=== PATIENT | female | born 1940 | race Caucasian/White ===

== ENCOUNTER 2018-07-15 07:58 | Emergency (ER) | payer MEDICARE ==
[~2018-07-15] VITALS: Ht 149.9 cm; Wt 95.3 kg
--- OUTSIDE RECORDS SUMMARY | ~2018-07-15 | XMS | Clinical Summary ---
Demographics + + + | Address | [address] | | | [place] [address] | + + + | Home Phone | | + + + | Preferred Language | Unknown | + + + | Marital Status | | + + + | Voodoo Affiliation | Unknown | + + + | Race | Unknown | + + + | Ethnic Group | Unknown | + + + Author + + + | Author | [facility] | + + + | Organization | [facility] | + + + | Address | Unknown | + + + | Phone | Unavailable | + + + Support + + +---------+ + | Name | Relationship | Address | Phone | + + +---------+ + | Myrna Chirinos | ECON | Unknown | | + + +---------+ + Care Team Providers + +------+ + | Care Second Steward Name | Role | Phone | + +------+ + | Brian Zapata MD | PP | | + +------+ + Allergies No Known Allergies Current Medications + + +-------+---------+------+------+-------+ | Prescription | Sig. | Disp. | Refills | Star | End | Statu | | | | | | t | Date | s | | | | | | Date | | | + + +-------+---------+------+------+-------+ | Aloe Vera 500 MG | Take 1,200 mg by | | | | | Activ | | CAPS | mouth daily. | | | | | e | + + +-------+---------+------+------+-------+ | aspirin 81 MG | Take 81 mg by mouth | | | | | Activ | | chewable tablet | daily. | | | | | e | + + +-------+---------+------+------+-------+ | atorvastatin | Take 20 mg by mouth | | | | | Activ | | (LIPITOR) 20 MG | nightly. | | | | | e | | tablet | | | | | | | + + +-------+---------+------+------+-------+ | Difluprednate 0.05 | Apply 1 drop to eye | | | | | Activ | | % EMUL | 2 (two) times daily. | | | | | e | + + +-------+---------+------+------+-------+ | doxazosin | Take 8 mg by mouth | | | | | Activ | | (CARDURA) 8 MG | nightly. | | | | | e | | tablet | | | | | | | + + +-------+---------+------+------+-------+ | ferrous sulfate, | Take 65 mg of iron | | | | | Activ | | 65 FE, 324 (65 FE) | by mouth 3 (three) | | | | | e | | MG EC tablet | times daily with | | | | | | | | meals. | | | | | | + + +-------+---------+------+------+-------+ | folic acid | Take 1 mg by mouth | | | | | Activ | | (FOLVITE) 1 MG | daily. | | | | | e | | tablet | | | | | | | + + +-------+---------+------+------+-------+ | furosemide (LASIX) | Take 40 mg by mouth | | | | | Activ | | 40 MG tablet | daily. | | | | | e | + + +-------+---------+------+------+-------+ | Alcaftadine | Apply 1 drop to eye | | | | | Activ | | (LASTACAFT) 0.25 % | daily. | | | | | e | | SOLN | | | | | | | + + +-------+---------+------+------+-------+ | levothyroxine | Take 75 mcg by mouth | | | | | Activ | | (SYNTHROID, | daily. | | | | | e | | LEVOTHROID) 75 MCG | | | | | | | | tablet | | | | | | | + + +-------+---------+------+------+-------+ | losartan (COZAAR) | Take 100 mg by mouth | | | | | Activ | | 100 MG tablet | daily. | | | | | e | + + +-------+---------+------+------+-------+ | metFORMIN | Take 500 mg by mouth | | | | | Activ | | (GLUCOPHAGE) 500 MG | 2 (two) times daily | | | | | e | | tablet | with meals. | | | | | | + + +-------+---------+------+------+-------+ | Moxifloxacin HCl | Apply 1 drop to eye | | | | | Activ | | (MOXEZA) 0.5 % SOLN | 2 (two) times daily. | | | | | e | + + +-------+---------+------+------+-------+ | nateglinide | Take 120 mg by mouth | | | | | Activ | | (STARLIX) 120 MG | 3 (three) times | | | | | e | | tablet | daily before meals. | | | | | | + + +-------+---------+------+------+-------+ | fish oil-omega-3 | Take 2 g by mouth 3 | | | | | Activ | | fatty acids 1000 MG | (three) times daily. | | | | | e | | capsule | | | | | | | + + +-------+---------+------+------+-------+ | pantoprazole | Take 40 mg by mouth | | | | | Activ | | (PROTONIX) 40 MG | daily. | | | | | e | | tablet | | | | | | | + + +-------+---------+------+------+-------+ | potassium chloride | Take 10 mEq by mouth | | | | | Activ | | (K-DUR) 10 MEQ | 2 (two) times | | | | | e | | tablet | daily. | | | | | | + + +-------+---------+------+------+-------+ | spironolactone | Take 50 mg by mouth | | | | | Activ | | (ALDACTONE) 50 MG | daily. | | | | | e | | tablet | | | | | | | + + +-------+---------+------+------+-------+ | albuterol | Take 2.5 mg by | | | | | Activ | | (PROVENTIL) (5 | nebulization every 4 | | | | | e | | MG/ML) 0.5% | (four) hours as | | | | | | | nebulizer solution | needed. | | | | | | + + +-------+---------+------+------+-------+ | ascorbic acid | Take 500 mg by mouth | | | | | Activ | | (VITAMIN C) 250 MG | daily. | | | | | e | | CHEW | | | | | | | + + +-------+---------+------+------+-------+ | | 1 drop nightly. | | | | | Activ | | carboxymethylcellulo | | | | | | e | | se (REFRESH PLUS) | | | | | | | | 0.5 % SOLN | | | | | | | + + +-------+---------+------+------+-------+ | traMADol (ULTRAM) | Take 50 mg by mouth | | | | | Activ | | 50 MG tablet | every 6 (six) hours | | | | | e | | | as needed. | | | | | | + + +-------+---------+------+------+-------+ | | Take 1 tablet by | | | | | Activ | | HYDROcodone-acetamin | mouth every 6 (six) | | | | | e | | ophen (NORCO) 5-325 | hours as needed. | | | | | | | MG per tablet | | | | | | | + + +-------+---------+------+------+-------+ | imipramine | Take 25 mg by mouth | | | | | Activ | | (TOFRANIL) 25 MG | nightly. | | | | | e | | tablet | | | | | | | + + +-------+---------+------+------+-------+ | Apoaequorin | Take by mouth. | | | | | Activ | | (PREVAGEN EXTRA | | | | | | e | | STRENGTH) 20 MG CAPS | | | | | | | + + +-------+---------+------+------+-------+ | Multiple | Take by mouth. | | | | | Activ | | Vitamins-Minerals | | | | | | e | | (ICAPS) CAPS | | | | | | | + + +-------+---------+------+------+-------+ | BEE POLLEN PO | Take by mouth. | | | | | Activ | | | | | | | | e | + + +-------+---------+------+------+-------+ Active Problems + + + | Problem | Noted Date | + + + | Septic shock(785.52) | 09/14/2013 | + + + | Sternal wound infection | 09/14/2013 | + + + + + | Last Assessment & Plan: There are no signs of infection at | | this time. We discussed the possibility that this infection | | involved the sternum bone, and the importance of close | | observation for signs of recurrent infection. At this point, the | | patient has been off antibiotics for 2 weeks and has reassuring | | labs showing continued improvement in his sedimentation rate, | | minimally elevated CRP and normal white blood cell count without | | left shift. We will plan to followup in 3 months with repeat | | inflammatory markers and complete blood count at that time. The | | patient was advised to call promptly if she has any increased | | redness, swelling, pain or drainage. The patient expressed | | understanding. | + + + + + | Chest pain, muscular | 09/13/2013 | + + + | UTI (lower urinary tract infection) | 09/13/2013 | + + + | Leukocytosis, unspecified | 09/13/2013 | + + + | Postoperative wound infection | 09/13/2013 | + + + + + | Last Assessment & Plan: There is no evidence of ongoing | | infection, and repeat labs are reassuring with sedimentation rate | | and CRP remain modestly elevated, but are both improved off | | antibiotics. White blood cell count is normal without left shift. | | The wound is fully healed with no evidence of infection. The | | patient was advised to call promptly if she has any fevers, | | recurrent redness pain or swelling in the wound. Otherwise, no | | further infectious diseases followup should be needed. | + + + + + | Diabetes mellitus type 2, controlled | 09/13/2013 | + + + | Benign essential HTN | 09/13/2013 | + + + | KIP on CPAP | 09/13/2013 | + + + | Refusal of blood transfusions as patient is Judaism | 09/13/2013 | + + + | Constipation | 09/13/2013 | + + + | Hyponatremia | 09/13/2013 | + + + | Open chest wound, STERNUM | 09/12/2013 | + + + + + | Last Assessment & Plan: Fully healed. | + + + + + | Type II or unspecified type diabetes mellitus without mention of | 09/12/2013 | | complication, not stated as uncontrolled | | + + + | Unspecified essential hypertension | 09/12/2013 | + + + | Aortic stenosis | 09/12/2013 | + + + | Aortic valve replaced | 09/12/2013 | + + + | GERD (gastroesophageal reflux disease) | 09/12/2013 | + + + Immunizations + + + + | Name | Dates Previously Given | Next Due | + + + + | Pneumococcal | 09/14/2013 | | | Polysaccharide | | | | 23-valent | | | + + + + Family History + + +------+ + | Medical History | Relation | Name | Comments | + + +------+ + | Stroke | Maternal | | | | | Grandmoth | | | | | er | | | + + +------+ + | Cancer | Mother | | colon | + + +------+ + + +------+ + + | Relation | Name | Status | Comments | + +------+ + + | Father | | | gun shot | + +------+ + + | Maternal Grandmother | | | | + +------+ + + | Mother | | | | + +------+ + + Social History + + + +--------+ + | Tobacco Use | Types | Packs/Day | Years | Date | | | | | Used | | + + + +--------+ + | Former Smoker | Cigarettes | 1.5 | | Quit: 09/12/1993 | + + + +--------+ + + + +---------+ + | Alcohol Use | Drinks/We | oz/Week | Comments | | | ek | | | + + +---------+ + | No | | | quit long time ago | + + +---------+ + + + + | Sex Assigned at | Date Recorded | | | | + + + | Not on file | | + + + Last Filed Vital Signs + + + + | Vital Sign | Reading | Time Taken | + + + + | Blood Pressure | 132/70 | 04/22/2017 1:10 PM PDT | + + + + | Pulse | 67 | 04/22/2017 1:10 PM PDT | + + + + | Temperature | 36.6 C (97.8 F) | 01/15/2014 2:33 PM PDT | + + + + | Respiratory Rate | 18 | 04/22/2017 1:10 PM PDT | + + + + | Oxygen Saturation | 94% | 04/22/2017 1:10 PM PDT | + + + + | Inhaled Oxygen | - | - | | Concentration | | | + + + + | Weight | 96.8 kg (213 lb 4.8 | 04/22/2017 1:10 PM PDT | | | oz) | | + + + + | Height | 149.9 cm (4' 11") | 04/22/2017 1:10 PM PDT | + + + + | Body Mass Index | 43.08 | 04/22/2017 1:10 PM PDT | + + + + Plan of Treatment + + + + + | Health Maintenance | Due Date | Last Done | Comments | + + + + + | Diabetic Eye Exam | | | | | | 0 | | | + + + + + | Diabetic Foot Exam | | | | | | 0 | | | + + + + + | Microalbumin | | | | | Screening | 0 | | | + + + + + | Vaccine: | | | | | Dtap/Tdap/Td (1 - | 9 | | | | Tdap) | | | | + + + + + | Vaccine: Zoster (1 | | | | | of 2) | 0 | | | + + + + + | DEXA SCAN SCREENING | | | | | | 5 | | | + + + + + | Hemoglobin A1c | | 09/13/2013 | | | | 4 | | | + + + + + | Vaccine: | | 09/14/2013 | | | Pneumococcal 65+ | 4 | | | | Low/Medium Risk (2 | | | | | of 2 - PCV13) | | | | + + + + + | Vaccine: Influenza | | | | | (#1) | 8 | | | + + + + + Results Not on filefrom Last 3 Months Insurance + +--------+ +------+-------+ + | Payer | Benefi | Subscriber | Type | Phone | Address | | | t Plan | ID | | | | | | / | | | | | | | Group | | | | | + +--------+ +------+-------+ + | MEDICARE | MEDICA | [id number] | | | [address] | | | RE | | | | [place] [address] | | | IP-OP | | | | | + +--------+ +------+-------+ + | UNITED HEALTHCARE | UNITED | [id number] | | | | | | | | | | | | | HEALTH | | | | | | | CARE - | | | | | | | AARP | | | | | + +--------+ +------+-------+ + + +--------+ +--------+ + + | Guarantor Name | Accoun | Relation to | Date | Phone | Billing Address | | | t Type | Patient | of | | | | | | | | | | + +--------+ +--------+ + + | AJNA MUÑIZ | Person | Self | [birth year] Home: | [address] | | | [place] | | 1940 | [phone] [place] | | | [place] | | | [phone] | [phone] | + +--------+ +--------+ + +
--- OUTSIDE RECORDS SUMMARY | ~2018-07-15 | XMS | Clinical Summary ---
Demographics + + + | Address | [address] | | | [place] [address] | + + + | Home Phone | | + + + | Preferred Language | Unknown | + + + | Marital Status | | + + + | Confucianism Affiliation | Unknown | + + + | Race | Unknown | + + + | Ethnic Group | Unknown | + + + Author + + + | Author | [facility] | + + + | Organization | [facility] | + + + | Address | Unknown | + + + | Phone | Unavailable | + + + Support + + +---------+ + | Name | Relationship | Address | Phone | + + +---------+ + | Myrna Chirinos | ECON | Unknown | | + + +---------+ + Care Team Providers + +------+ + | Care Canary Raiser Name | Role | Phone | + [...] Refusal of blood transfusions as patient is Roman Catholic | 09/13/2013 | + + + | [...] +------+-------+ + | MEDICARE | MEDICA | [id number] | | | [address] | | | RE | | | | [place] [address] | | | IP-OP | | | | | + +--------+ +------+-------+ + | UNITED HEALTHCARE | UNITED | [id number] | | | | | | | [...] | + +--------+ +--------+ + + | JANA MUÑIZ | Person | Self | [birth year] | Home: | [address] | | | [place] | | 1940 | [phone] | [place] | | | [place] | | | [phone] | [phone] | + +--------+ +--------+ + +
[~2018-07-15 07:58] MED LIST: COZAAR100 MG PO; FUROSEMIDE40 MG PO; HYDROCODON-ACE1 EA10 PO; LEVOTHYROXINE75 MCG PO; LIPITOR20 MG PO; MELOXICAM7.5 MG PO; METFORMIN HCL500 MG PO
[2018-07-15] MEDS ORDERED: ATORVASTATIN CA20 MG PO (08:10)
[2018-07-15] MEDS ORDERED: NATEGLINIDE120 MG PO (08:10)
[2018-07-15] MEDS ORDERED: POTASSIUM CHLO10 MEQ PO (08:10)
[2018-07-15] MEDS ORDERED: GLUCOPHAGE500 MG PO (08:12)
== END 2018-07-15 10:10 | disposition home or self-care (01) ==
LOC: ED 07:58
DX: R07.89 Other chest pain (principal); E11.9 Type 2 diabetes mellitus without complications; Z87.891 Personal history of nicotine dependence; Z88.8 Allergy status to other drugs, medicaments and biological substances; Z79.899 Other long term (current) drug therapy; W18.30XA Fall on same level, unspecified, initial encounter
CPT/HCPCS: 71046; 72170; 99284

== ENCOUNTER 2019-04-05 07:45 | Day surgery (SDC) | payer MEDICARE ==
[~2019-04-05] VITALS: Ht 149.9 cm; Wt 95.2 kg
[~2019-04-05 07:45] MED LIST changes: +ATORVASTATIN CA20 MG PO; +GLUCOPHAGE500 MG PO; +NATEGLINIDE120 MG PO; +POTASSIUM CHLO10 MEQ PO
[2019-04-05] MEDS ORDERED: ASPIR-LOW81 MG PO (08:01)
--- NOTE | 2019-04-05 09:30 | NUR ---
0900 assisted to br. iv patent. updated on wait.
--- NOTE | 2019-04-05 10:15 | NUR ---
04/05/19 Betty5 Cecille Ortiz 1005-PATIENT ARRIVED TO PACU ON 6L NC PLACED ON 3L RR EVEN. PATIENT DROWSY AROUSES TO VERBAL STIMULI DENIES PAIN OR NAUSEA. ABDOMEN SOFT PASSING GAS. INSPIRATORY CRACKLES HEARD ON AUSCULTATION. 1014-GLUCOSE 135. PATIENT AWAKE DENIES PAIN OR NAUSEA.
--- NOTE | 2019-04-05 16:36 | OR ---
[facility] [address] [place], [place] [address] Signed DATE OF OPERATION: 04/05/2019 SURGEON: Shayy Park MD PREOPERATIVE DIAGNOSES: 1. Change in bowel habits with incomplete rectal evacuation. 2. Intermittent rectal bleeding. 3. Internal and external hemorrhoids. 4. Diverticulosis. 5. Personal history of colonic polyps in 2016. 6. Mother with colon cancer at age 65. 7. Maternal uncle with colon cancer at age 72. POSTOPERATIVE DIAGNOSES: 1. 4 mm polyps x2, distal right colon. 2. 4 mm polyps at 95 cm, 70 cm and 65 cm. 3. Lhoemmi-rx-edrzjhqf sigmoid diverticulosis. 4. Minimal internal hemorrhoids. 5. Moderate external hemorrhoids. PROCEDURE PERFORMED: Colonoscopy with hot biopsy. ESTIMATED BLOOD LOSS: None. INDICATIONS: Jana is a 78-year-old female who presents for a followup colonoscopy. She was telling me she is having the inability to completely evacuate the rectum. She has told me she had five children, all born vaginally. She said the stool is not hard, it just will not come out. She likes to take colon cleanse in order to get the stool to pass. This seemed to be new for her. Consequently, it represented a change in bowel habits. She does have intermittent rectal bleeding. This is chronic. We know that her mother had colon cancer at age 65 and her maternal uncle had colon cancer at age 72. Jana herself had colonic polyps back in 2016 along with some diverticulosis and internal and external hemorrhoids. In the office, I explained her we would order a Sitzmark test to rule out colonic inertia. However, she may have an outlet obstruction. She also needs a followup colonoscopy. Because of her full round face, heavy neck, we did have an anesthesia provider to help with increased monitoring sedation with propofol last time and we went ahead and ordered at this time. Of course, she does wear her CPAP mask. Electronically Signed By: SHAYY PARK MD 04/05/19 1636 PATIENT NAME: JANA LOPEZ OPERATIVE REPORT DATE OF : 40 REPORT #: [id number] PHYSICIAN: SHAYY PARK MD PCP: SHAUN ORTIZ MD REPORT IS CONFIDENTIAL AND NOT TO BE RELEASED WITHOUT AUTHORIZATION [facility] [address], [place] [address] Signed She had expressed understanding and wished to proceed. DESCRIPTION OF PROCEDURE: Jana was taken into our endoscopy suite and placed in the left lateral decubitus position. She was maintained on IV sedation with propofol per our nurse primer powder blender wet. A digital rectal exam was performed. She has circumferential moderate external hemorrhoids. No masses. The adult colonoscope was introduced and advanced all around into the cecum under direct visualization of camera. It required some abdominal compression in order to get around the hepatic flexure and into the cecum itself. We could easily see the appendiceal orifice along with the ileocecal valve. We took pictures throughout for photodocumentation. The scope was slowly withdrawn. The above-mentioned polyps were easily removed with the help of the hot biopsy forceps. Again, she has diverticula in the left and sigmoid colon. They were moderate in size, jvqobos-nn-ydfouryl in number, and scattered about. The rectum itself was unremarkable. Upon retroflexion of scope, she really has minimal internal hemorrhoids. The gas was then suctioned out. The colonoscope removed. Jana tolerated procedure quite well. RECOMMENDATIONS: I will see Jana back in my office in 7 to 14 days to review her Sitzmark test along with her colonoscopy. She might consider defecography and a balloon expulsion test and even anal manometry. Shayy Park MD ALB/MODL /[id number] cc: MD Shayy Watters MD Copies: SHAUN ORTIZ MD Electronically Signed By: SHAYY PARK MD 04/05/19 1636 PATIENT NAME: JANA LOPEZ OPERATIVE REPORT DATE OF : 40 REPORT #: [id number] PHYSICIAN: SHAYY PARK MD PCP: SHUAN ORTIZ MD REPORT IS CONFIDENTIAL AND NOT TO BE RELEASED WITHOUT AUTHORIZATION [address] [address] Signed SHAYY PARK MD ~ Electronically Signed By: SHAYY PARK MD 04/05/19 1636 PATIENT NAME: IDALIA LOPEZSEGUNDO SAHAPATRICE OPERATIVE REPORT DATE OF : 40 REPORT #: [id number] PHYSICIAN: SHAYY PARK MD PCP: SHAUN ROTIZ MD REPORT IS CONFIDENTIAL AND NOT TO BE RELEASED WITHOUT AUTHORIZATION
== END 2019-04-05 11:09 | disposition home or self-care (01) ==
LOC: DS 07:45 → OPS 07:45 → DS 08:15 → OPS 08:15
PROVIDERS: Colon & Rectal Surgery
PROC: 0DBE8ZZ Excision of Large Intestine, Via Natural or Artificial Opening Endoscopic (ICD-10-PCS; 2019-04-05)
PROC: 0DBK8ZZ Excision of Ascending Colon, Via Natural or Artificial Opening Endoscopic (ICD-10-PCS; principal; 2019-04-05 08:15)
DX: D12.6 Benign neoplasm of colon, unspecified (principal); K63.5 Polyp of colon; K57.30 Diverticulosis of large intestine without perforation or abscess without bleeding; K64.8 Other hemorrhoids; K64.4 Residual hemorrhoidal skin tags; I10 Essential (primary) hypertension; E78.5 Hyperlipidemia, unspecified; E03.9 Hypothyroidism, unspecified; E11.9 Type 2 diabetes mellitus without complications; F41.9 Anxiety disorder, unspecified; G47.33 Obstructive sleep apnea (adult) (pediatric); E66.9 Obesity, unspecified; Z68.42 Body mass index [BMI] 45.0-49.9, adult; Z99.89 Dependence on other enabling machines and devices; Z87.891 Personal history of nicotine dependence; Z79.82 Long term (current) use of aspirin; Z79.899 Other long term (current) drug therapy; Z79.891 Long term (current) use of opiate analgesic; Z79.84 Long term (current) use of oral hypoglycemic drugs
CPT/HCPCS: J2704; J3490; J7120

== ENCOUNTER 2021-11-21 22:39 | Emergency (ER) | payer MEDICARE ==
[~2021-11-21] VITALS: Ht 149.9 cm; Wt 88.9 kg
[~2021-11-21 22:39] MED LIST changes: +ASPIR-LOW81 MG PO
--- OUTSIDE RECORDS SUMMARY | 2021-11-21 22:42 | XMS ---
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 Ace VISIT COUNT (12 MO.) 1 TEMITOPE Mckeon TOTAL 1 NOTE: Visits indicate total known visits. ED/UCC VISIT TRACKING (12 MO.) 11/21/2021 22:40 [facility]OPE [facility] [place] TYPE: Emergency COMPLAINT: - FALL INPATIENT VISIT TRACKING (12 MO.) No inpatient visits to display in this time frame [email or web address]
[2021-11-21] MEDS ORDERED: TORSEMIDE20 MG PO (22:53)
[2021-11-21] MEDS ORDERED: SPIRONOLACTONE50 MG PO (22:53)
[2021-11-22] MEDS ORDERED: PERCOCET 5-3251 EACH PO (01:58)
== END 2021-11-22 02:24 | disposition home or self-care (01) ==
LOC: ED 22:39
DX: S22.089A Unspecified fracture of T11-T12 vertebra, initial encounter for closed fracture (principal); E11.9 Type 2 diabetes mellitus without complications; I10 Essential (primary) hypertension; Z87.891 Personal history of nicotine dependence; Z88.8 Allergy status to other drugs, medicaments and biological substances; Z79.84 Long term (current) use of oral hypoglycemic drugs; Z79.82 Long term (current) use of aspirin; Z79.890 Hormone replacement therapy; Z79.899 Other long term (current) drug therapy; W18.30XA Fall on same level, unspecified, initial encounter
CPT/HCPCS: 72128; 96372; 99284-25; J2270

== ENCOUNTER 2023-11-23 22:00 | Day surgery (SDC) | payer MEDICARE ==
[~2023-11-23] VITALS: Ht 149.9 cm; Wt 88.5 kg
[~2023-11-23 22:00] MED LIST changes: +PERCOCET 5-3251 EACH PO; +SPIRONOLACTONE50 MG PO; +TORSEMIDE20 MG PO
--- OUTSIDE RECORDS SUMMARY | 2023-11-23 22:03 | XMS ---
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 07/15/2018-Current PHONE: [phone] Christie has no Care Guidelines for this patient. Ace VISIT COUNT (12 MO.) Marjorie Mckeon TOTAL 1 NOTE: Visits indicate total known visits. ED/UCC VISIT TRACKING (12 MO.) 11/23/2023 22:02 [facility] [place] TYPE: Emergency COMPLAINT: - FOREIGN OBJECT STUCK INPATIENT VISIT TRACKING (12 MO.) No inpatient visits to display in this time frame [id number]
[2023-11-24 00:25] LABS: BASOPHILS 0.9 % (0-2); EOSINOPHILS 2.9 % (0-6); HEMATOCRIT 43.8 % (35.0-50.0); HEMOGLOBIN 14.7 g/dL (12.0-18.0); LYMPHOCYTES 26.6 % (24-44); MCHC 33.5 g/dl (30-36); MCV 92.3 fl (81-99); MONOCYTES 8.9 % (0-12); NEUTROPHILS 60.7 % (39-80); PLATELET COUNT 268 K/uL (140-440); RBC 4.75 M/ul (4.3-5.7); RDW 14.9 (10.5-15.0)
[2023-11-24 00:35] LABS: INR 0.94 (0.80-1.30); PROTIME 12.2 Sec (11.2-14.2)
[2023-11-24 00:43] LABS: ALBUMIN 3.5 g/dL (3.4-5.0); ALBUMIN/GLOBULIN RATIO 0.71 (1.1-2.4); ANION GAP 14.9 (7-21); BILIRUBIN, TOTAL 0.8 ng/dL (0.2-1.0); BUN/CREATININE RATIO 34.88 (6.0-28.6); CALCIUM 9.5 mg/dL (8.5-10.1); CREATININE, SERUM 1.29 mg/dL (0.55-1.02); POTASSIUM 3.9 mmol/L (3.5-5.1); PROTEIN, TOTAL 8.4 g/dL (6.4-8.2)
[2023-11-24 02:40] VITALS: BP 133/54
--- NOTE | 2023-11-24 09:27 | OR ---
[facility] [address] [place], [place] [address] Signed DATE OF OPERATION: 11/24/2023 SURGEON: Shayy Park MD PREOPERATIVE DIAGNOSIS: Esophageal foreign body (chicken). POSTOPERATIVE DIAGNOSES: 1. Proximal esophageal foreign body (chicken). 2. Mild gastroduodenitis. PROCEDURE: EGD with CLOtest and biopsy of the pyloric bulb and antrum and removal of foreign body. ESTIMATED BLOOD LOSS: None. INDICATIONS: Jana is an 83-year-old female, who was eating chicken earlier tonight with her family. She ate some cartilage off the end of the femur and felt to get stuck in her upper esophagus. She is having referred pain to her ear. She could not clear that with drinking fluids. She came to the emergency room for evaluation. I was asked by the ER doctor to come and see her for evaluation. I met with Jana and her daughter. I explained to them we needed to take her to endoscopy suite to look and make sure we could clear all her foreign body. They understand the nature of an upper endoscopy. There is risk including, but not limited to gas bloating, crampy abdominal pain, bleeding, perforation requiring surgery, and missed diagnosis. We also used general endotracheal tube anesthesia in this situation to protect the airway. They had expressed understanding and wished to proceed. DESCRIPTION OF PROCEDURE: Jana was taken into our endoscopy suite and placed in the supine semi-recumbent position. She was placed under general endotracheal tube anesthesia by our nurse service porter. A bite block was utilized. The adult gastroscope was introduced and I did chicken at the upper esophageal sphincter. We went by and down the esophagus and out into the stomach. She had a little bit of food and fluid still in the stomach, most of which I suctioned out. She seemed to have some erythematous changes in the bulb and the stomach, so I went ahead and took a biopsy from the pyloric bulb and the antrum for pathologic review. We took an additional biopsy from the antrum for CLOtest. Upon retroflexion of the scope, I really could not see the cardia because there was a little Electronically Signed By: SHAYY PARK MD 11/24/23 0927 PATIENT NAME: JANA LOPEZ OPERATIVE REPORT DATE OF : 40 REPORT #: [id number] PHYSICIAN: SHAYY PARK MD PCP: AQUILES MARTINEZ MD REPORT IS CONFIDENTIAL AND NOT TO BE RELEASED WITHOUT AUTHORIZATION [facility] [address] [place], [place] [address] Signed bit too much fluid and particulate food matter. The scope was withdrawn up through the area of the GE junction, which appears compliant without stricture. The distal and middle esophagus were unremarkable. I did find a little bit of chicken left in the groove on the side of the upper esophageal sphincter. I pushed that away and she had just a little bit of irritation there. I think this is the area that was causing her symptoms. After this, the gas was suctioned out and the gastroscope removed. Jana tolerated the procedure quite well. RECOMMENDATIONS: I will see Jana back in my office in 7 to 14 days to review her results. Shayy Park MD ALB/MODL /[id number] cc: MD Dr. Fabio Hills Copies: SHAYY PARK MD ~ Electronically Signed By: SHAYY PARK MD 11/24/23 0927 PATIENT NAME: JANA LOPEZ OPERATIVE REPORT DATE OF : 40 REPORT #: [id number] PHYSICIAN: SHAYY PARK MD PCP: AQUILES MARTINEZ MD REPORT IS CONFIDENTIAL AND NOT TO BE RELEASED WITHOUT AUTHORIZATION
--- NOTE | 2023-11-24 09:27 | CONS ---
[facility] [address], [place] [address] Signed DATE OF CONSULTATION: 11/24/2023 CHIEF COMPLAINT: Esophageal foreign body. HISTORY OF PRESENT ILLNESS: Jana is an 83-year-old female, who was eating around 8:30 tonight with her family. They were eating chicken where the thigh is attached to the body. She bit the cartilage off the end of the femur bone and swallowed it and now she is having pain referred to her ear and in the back of her throat. It hurts a little bit when she swallows, but otherwise seems to be doing fine. She came to the emergency room for evaluation. I have been asked to come and see her with respect to the above. PAST MEDICAL HISTORY: 1. Type 2 diabetes. 2. Hypertension. 3. Obesity. PAST SURGICAL HISTORY: Porcine aortic valve replacement. SOCIAL HISTORY: She does not smoke or drink. Dr. Mccarthy is her primary care provider. She prefers the [facility]. Myrna Bell is her daughter at [phone]. 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 She is a , but she continues to drive. 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 FAMILY HISTORY: None. REVIEW OF SYSTEMS: She had 10 systems reviewed and she told me about the heart valve. ALLERGIES: Lisinopril and gabapentin. MEDICATIONS: 1. Losartan. 2. Levothyroxine. 3. Metformin. 4. Aspirin. 5. Torsemide. 6. Spironolactone. Electronically Signed By: SHAYY PARK MD 11/24/23 0927 PATIENT NAME: JANA LOPEZ CONSULTATION DATE OF : 40 REPORT #: [id number] PHYSICIAN: SHAYY PARK MD PCP: AQUILES MARTINEZ MD REPORT IS CONFIDENTIAL AND NOT TO BE RELEASED WITHOUT AUTHORIZATION [facility] [address], [place] [address] Signed 7. Graham. 8. Potassium chloride. 9. Atorvastatin. 10. Nateglinide. PHYSICAL EXAMINATION: VITAL SIGNS: Her blood pressure is 164/100, her heart rate is 102, respiratory rate is 17, temperature is 98.1, she is 93% on room air. She is 4 feet 11 inches, 88 kg with a body mass index of 39. GENERAL: Jana is an 83-year-old female lying supine semi-recumbent in her ER bed watching TV. She is in no acute distress. Her daughter is in the room. LUNGS: Clear to auscultation bilaterally. HEART: Regular rate and rhythm without murmurs. ABDOMEN: Obese, soft and nontender. She is pointing to the area of the sternal notch as pain. LABORATORY DATA: Labs pending. EKG pending. RADIOGRAPHIC STUDIES: A cervical x-ray was performed. There were no issues noted. ASSESSMENT AND PLAN: Jana is an 83-year-old female, who swallowed the cartilage off the end of the femur bone from chicken leg. She is having some pain, but most likely it has passed already. Nevertheless, we are going to go ahead and take her down to our endoscopy suite, we will pass the camera and make sure everything is okay. She will need some Ancef because of the aortic valve replacement. She understands upper endoscopy. She understands there is risk including, but not limited to gas bloating, crampy abdominal pain, bleeding, perforation requiring surgery, and missed diagnosis. She and her daughter have expressed understanding and would like to proceed. Shayy Park MD ALB/MODL /[id number] cc: Shayy Park MD Electronically Signed By: SHAYY PARK MD 11/24/23 0927 PATIENT NAME: JANA LOPEZ CONSULTATION DATE OF : 40 REPORT #: [id number] PHYSICIAN: SHAYY PARK MD PCP: AQUILES MARTINEZ MD REPORT IS CONFIDENTIAL AND NOT TO BE RELEASED WITHOUT AUTHORIZATION [facility] [address] [facility] [place], [place] [address] Mccarthy Copies: SHAYY PARK MD ~ Electronically Signed By: SHAYY PARK MD 11/24/23 0927 PATIENT NAME: JANA LOPEZ CONSULTATION DATE OF : 40 REPORT #: [id number] PHYSICIAN: SHAYY PARK MD PCP: AQUILES MARTINEZ MD REPORT IS CONFIDENTIAL AND NOT TO BE RELEASED WITHOUT AUTHORIZATION
--- NOTE | 2023-11-24 20:56 | EKG ---
[facility] [place] [facility] [address] [facility] [place] [address] Signed Normal sinus rhythm Left axis deviation Incomplete left bundle branch block Left ventricular hypertrophy with repolarization abnormality ( R in aVL , [place]is product ) Abnormal ECG When compared with ECG of 30-MAR-2019 14:05, premature atrial complexes are no longer present Incomplete left bundle branch block is now present Confirmed by Yvonne Sparks MD () on 11/24/2023 8:56:07 PM Electronically Signed By: YVONNE SPARKS MD 11/24/232055 PATIENT NAME: JANA LOPEZ Electrocardiogram DATE OF : 40 PHYSICIAN: YVONNE SPARKS MD REPORT #: [id number] REPORT IS CONFIDENTIAL AND NOT TO BE RELEASED WITHOUT AUTHORIZATION
--- NOTE | 2023-11-26 18:12 | PATH ---
[facility] [address], [place] [address] Signed SPECIMEN(S): A DUODENAL BIOPSY SPECIMEN(S): B ANTRUM BIOPSY SPECIMEN SOURCE: A. DUODENAL BIOPSY B. ANTRUM BIOPSY CLINICAL HISTORY: Esophageal foreign body. FINAL PATHOLOGIC DIAGNOSIS: A. Duodenum, biopsy: - Duodenum with prominent Gabe's glands; suggestive of Gabe's gland hyperplasia. - No villous abnormality identified. - Negative for acute, chronic, and granulomatous inflammation. - Negative for dysplasia and malignancy. B. Stomach, antrum, biopsy: - Antral-type mucosa with focal mild chronic inflammation and slight vascular congestion. - No acute or active inflammation identified. - No H. pylori-like organisms identified on routine HE-stained histologic sections. - Negative for intestinal metaplasia, dysplasia, and malignancy. SDL MICROSCOPIC EXAMINATION: Histologic sections of all submitted blocks are examined by light microscopy. These findings, together with the gross examination, support the pathologic diagnosis. GROSS DESCRIPTION: A. The specimen, labeled and designated "Antonino, duodenal biopsy," is received in formalin and consists of one marie soft tissue fragment, 0.5 cm. Entirely submitted in (A1). B. The specimen, labeled and designated "Antonino, antrum biopsy," is received in formalin and consists of one marie soft tissue fragment, 0.5 cm. Entirely submitted in (B1). VB (under the direct supervision of a pathologist) The Gross Description was prepared using a voice recognition system. The report was reviewed for accuracy; however, sound-alike word errors, addition and/or PATIENT NAME: JANA LOEPZ PATHOLOGY DATE OF : 40 REPORT #: [id number] PHYSICIAN: DEXTER FUNG PCP: AQUILES MARTINEZ MD REPORT IS CONFIDENTIAL AND NOT TO BE RELEASED WITHOUT AUTHORIZATION [facility] [address] [place] [id number] Signed deletions may occur. If there are any questions about this report, please contact Client Services. ADDITIONAL NOTES: Immunohistochemical and/or in situ hybridization studies if performed in this case included appropriate positive controls that reacted as expected. This test was developed and its performance characteristics determined by [facility]. It has not been cleared or approved by the U.S. Food and Drug Administration. The FDA has determined that such clearance or approval is not necessary. This test is used for clinical purposes. It should not be regarded as investigational or for research. [facility] is certified under the Clinical Laboratory Improvement Amendments of 1988 (CLIA) as qualified to perform high complexity clinical laboratory testing. PERFORMING LABORATORY: Technical component was performed by [facility], [address] [place] [id number] (CLIA# [id number]). Professional interpretation was performed by [facility], [address] [place] [id number] (CLIA#: [id number]). Diagnostician: Norma Fernandez MD Pathologist Electronically Signed 11/26/2023 Copies: ~ PATIENT NAME: JANA LOPEZ PATHOLOGY DATE OF : 40 REPORT #: [id number] PHYSICIAN: DEXTER FUNG PCP: AQUILES MARTINEZ MD REPORT IS CONFIDENTIAL AND NOT TO BE RELEASED WITHOUT AUTHORIZATION
== END 2023-11-24 04:10 | disposition home or self-care (01) ==
LOC: ED 22:00 → DSVR 11-24 00:56 → DS 11-24 00:56 → DSVR 11-24 00:57 → DS 11-24 04:10
PROVIDERS: Internal Medicine; ATTEND Colon & Rectal Surgery
PROC: 0DB68ZX Excision of Stomach, Via Natural or Artificial Opening Endoscopic, Diagnostic (ICD-10-PCS; 2023-11-24)
PROC: 0DC58ZZ Extirpation of Matter from Esophagus, Via Natural or Artificial Opening Endoscopic (ICD-10-PCS; principal; 2023-11-24 01:52)
DX: T18.128A Food in esophagus causing other injury, initial encounter (principal); K29.90 Gastroduodenitis, unspecified, without bleeding; E11.9 Type 2 diabetes mellitus without complications; I10 Essential (primary) hypertension
CPT/HCPCS: 00813; 36415; 70360; 80053; 84484; 85025; 85610; 87077; 93005; 93010; 96374; 99284-25; J0330; J0690; J1100; J2001; J2405; J2704; J3010; J3490